=== PATIENT | male | born 1985 | race Caucasian/White ===

== ENCOUNTER 2017-04-09 14:03 | Emergency (ER) | payer OTHER ==
[~2017-04-09] VITALS: Ht 182.9 cm; Wt 83.9 kg
[2017-04-09 14:09] VITALS: BP 143/88
[2017-04-09] MEDS ORDERED: IBUPROFEN600 M1 PO (14:34)
[2017-04-09] MEDS ORDERED: VIBRAMYCIN100 MG PO (14:34)
--- NOTE | 2017-04-09 14:34 | ED SKIN/ALLERGY COMPLAINT ---
History of Present Illness General Chief Complaint: Animal/Insect Bite Stated Complaint: TICK BITE,NOW HAS A RASH Source: patient, old records Exam Limitations: no limitations Vital Signs & Intake/Output Vital Signs & Intake/Output Vital Signs Date Time Temp Pulse Resp B/P B/P Pulse O2 O2 Flow FiO2 Mean Ox Delivery Rate 04/09 1409 98.0 76 20 143/88 97 Room Air Allergies Coded Allergies: amoxicillin (HIVES 04/09/17) Reconcile Medications Doxycycline Hyclate (Vibramycin) 100 MG CAPSULE 1 CAP PO BID lyme Ibuprofen 600 MG TABLET 1 TAB PO Q6PRN PRN pain with food Triage Note: PT STATES TICK BITE ON HIS LEFT SIDE 2 WEEKS AGO NOW WITH RASH Triage Nurses Notes Reviewed? yes Onset: 2 weeks Duration: week(s):, constant, continues in ED, getting worse Timing: recent history Severity: mild Location: torso Possible Factors: insect bite No Modifying Factors: none Associated Symptoms: rash HPI: 2 weeks prior to admission patient removed tick from his left lateral lower abdomen. He now has a circular rash about the bite site with central clearing along with general joint pain. He denies fever chills nausea vomiting diarrhea abdominal pain chest pain shortness of breath headache dysuria bleeding. Past History Travel History Traveled to [place] past 21 day No Medical History Any Pertinent Medical History? none Surgical History Surgical History: non-contributory Psychosocial History What is your primary language Turkmen Tobacco Use: Current Daily Use Daily Tobacco Use Amount/Type: =< 4 Cigarettes daily ETOH Use: occasional use Illicit Drug Use: marijuana Family History Hx Contributory? No Review of Systems Review of Systems Constitutional: Reports: no symptoms. EENTM: Reports: no symptoms. Respiratory: Reports: no symptoms. Cardiovascular: Reports: no symptoms. GI: Reports: no symptoms. Genitourinary: Reports: no symptoms. Musculoskeletal: Reports: see HPI, joint pain. Skin: Reports: see HPI, rash. Neurological/Psychological: Reports: no symptoms. Hematologic/Endocrine: Reports: no symptoms. Immunologic/Allergic: Reports: no symptoms. All Other Systems: Reviewed and Negative Physical Exam Physical Exam General Appearance: well developed/nourished, alert, awake, anxious, mild distress Head: atraumatic, normal appearance Eyes: Bilateral: PERRL, EOMI. Ears, Nose, Throat: normal pharynx, normal ENT inspection, hearing grossly normal Neck: normal inspection, supple Respiratory: normal breath sounds Cardiovascular: regular rate/rhythm Peripheral Pulses: 4+ carotid (R), 4+ carotid (L) Gastrointestinal: normal bowel sounds, soft, non-tender, no organomegaly Back: normal inspection Extremities: normal inspection, normal range of motion, no edema Neurologic/Psych: awake, alert, oriented x 3, normal mood/affect Reflexes: 2+: bicep (R), bicep (L). Skin: intact, normal color, rash Skin Problem Location: torso Skin Problem Character: rash (CENTRAL CLEARING) Lymphatic: no anterior cervical mercy Progress Differential Diagnosis: abscess/cellulitis, contact dermatitis, lyme disease Plan of Care: Current Medications Sig/Caty Start time Last Medication Dose Stop Time Status Admin Doxycycline Hyclate 100 MG ONCE ONE 04/09 1445 AC 04/09 (Vibramycin) 04/09 144 1443 Ibuprofen 600 MG ONCE ONE 04/09 1445 04/09 (Motrin) 04/09 1446 1443 Departure Departure Time of Disposition: 1433 Disposition: HOME OR SELF CARE Condition: Stable Clinical Impression Primary Impression: Erythema migrans (Lyme disease) Referrals: PATIENT HAS NO PRIMARY CARE DR (PCP/Family) Departure Forms: Customer Survey General Discharge Information Prescriptions: Current Visit Scripts Doxycycline Hyclate (Vibramycin) 1 CAP PO BID #42 CAP Ibuprofen 1 TAB PO Q6PRN PRN pain #50 TAB with food
== END 2017-04-09 14:50 ==
LOC: ERH 14:03
DX: A69.20 Lyme disease, unspecified (principal)